=== PATIENT | male | born 1955 | race African-American/Black ===

== ENCOUNTER 2018-11-06 08:07 | Day surgery (SDC) | payer OTHER ==
[2018-11-01 12:22] VITALS: BMI 29.3
[2018-11-06] MEDS ORDERED: PROPOFOL 20 ML ONE (10:00)
[2018-11-06] MEDS ORDERED: LIDOCAINE HCL/PF 2% SDV 5ML VIAL ONE (10:00)
[2018-11-06 11:55] VITALS: PULSE 68
[2018-11-06 12:31] VITALS: BP 118/70; TEMP 97.9
--- NOTE | 2018-11-08 16:31 | PATH ---
Surgical Pathology Report Patient Name: JENNIFER SMITH [facility]. Rec. #: [id number] /Age/Gender: 1955 (Age: 63) / M Account: [id number] Location: [facility] Taken: 11/06/2018 Received: 11/06/2018 Reported: 11/08/2018 Physicians: Tigre Cortez M.D. Specimen(s) Received A: POLYP TRANSVERSE COLON B: CECUM C: RIGHT COLON D: SIGMOID E: RECTOSIGMOID Clinical History History of polyps Postoperative diagnosis: Diverticulosis, polyp Final Diagnosis A. TRANSVERSE COLON, POLYP, BIOPSY: TUBULAR ADENOMA. B. CECAL POLYP, BIOPSY: CONSISTENT WITH TUBULAR ADENOMA WITH MARKED DEGENERATIVE CHANGE. SEE COMMENT. C. COLON, RIGHT, POLYP, BIOPSY: TUBULAR ADENOMA. D. SIGMOID COLON, POLYP, BIOPSY: TUBULAR ADENOMA. E. RECTOSIGMOID COLON, POLYP, BIOPSY: TUBULAR ADENOMA. Comment: Part B, Specimen shows marked degenerative changes which precludes a more definitive diagnosis. Suggest clinical/endoscopic correlation. Electronically Signed Unique Simmons M.D. Gross Description A. Received in formalin, labeled "transverse colon polyp" are 2 gomez, irregular portions of soft tissue averaging 0.4 cm. in greatest dimension. The specimens are submitted in toto in one cassette. B. Received in formalin labeled "cecal polyp," is a 1.4 x 1.3 a 0.3 cm aggregate of gomez soft tissue fragments. The formalin is filtered and the specimen is entirely submitted in one cassette. C. Received in formalin, labeled "right colon polyp" are 2 gomez, polypoid portions of soft tissue measuring 0.6 and 0.9 cm. in greatest dimension. The specimens are submitted in toto in one cassette. D. Received in formalin, labeled "sigmoid polyp" is a gomez, irregular portion of soft tissue measuring 0.4 cm. in greatest dimension. The specimen is submitted in toto in one cassette. E. Received in formalin, labeled "rectosigmoid polyp" is a gomez, irregular portion of soft tissue measuring 0.3 cm. in greatest dimension. The specimen is submitted in toto in one cassette. DL11/07/2018 saudi11/07/2018
== END 2018-11-06 11:55 | disposition home or self-care (01) ==
LOC: FASU-ENDO 08:07
PROVIDERS: ATTEND Internal Medicine Gastroenterology
PROC: 0DBL8ZX Excision of Transverse Colon, Via Natural or Artificial Opening Endoscopic, Diagnostic (ICD-10-PCS; 2018-11-06)
PROC: 0DBN8ZX Excision of Sigmoid Colon, Via Natural or Artificial Opening Endoscopic, Diagnostic (ICD-10-PCS; 2018-11-06)
PROC: 0DBH8ZX Excision of Cecum, Via Natural or Artificial Opening Endoscopic, Diagnostic (ICD-10-PCS; 2018-11-06)
PROC: 0DBK8ZX Excision of Ascending Colon, Via Natural or Artificial Opening Endoscopic, Diagnostic (ICD-10-PCS; principal; 2018-11-06 10:15)
DX: Z86.010 Personal history of colon polyps (principal); D12.0 Benign neoplasm of cecum; D12.2 Benign neoplasm of ascending colon; D12.3 Benign neoplasm of transverse colon; D12.5 Benign neoplasm of sigmoid colon; D12.7 Benign neoplasm of rectosigmoid junction; K57.30 Diverticulosis of large intestine without perforation or abscess without bleeding
CPT/HCPCS: 88305-TC

== ENCOUNTER 2019-08-13 08:14 | Day surgery (SDC) | payer OTHER ==
[2019-08-09 13:37] VITALS: BMI 28.6
[2019-08-13] MEDS ORDERED: PROPOFOL 20 ML ONE ×3 (09:28)
[2019-08-13 10:57] VITALS: BP 140/77; PULSE 67; TEMP 97.8
--- NOTE | 2019-08-16 14:57 | PATH ---
Surgical Pathology Report Patient Name: JENNIFER SMITH [facility]. Rec. #: [id number] /Age/Gender: 1955 (Age: 64) / M Account: [id number] Location: [facility] Taken: 08/13/2019 Received: 08/13/2019 Reported: 08/16/2019 Physicians: Tigre Cortez M.D. Specimen(s) Received A: POLYP CECUM B: POLYP PROXIMAL RIGHT COLON C: POLYPECTOMY MID RIGHT COLON Clinical History History of polyps Postoperative diagnosis: Melanosis coli, colon polyps, poor prep Final Diagnosis A. CECUM, POLYP, POLYPECTOMY: TUBULAR ADENOMA. B. PROXIMAL COLON, RIGHT, POLYP, POLYPECTOMY: ORGANIC MATERIAL/DEBRIS. NO SOFT TISSUE IDENTIFIED. SEE COMMENT. C. MID COLON, RIGHT, POLYPECTOMY: TUBULAR ADENOMA. Comment: Part B, material insufficient for definitive diagnosis. Suggest clinical and endoscopic correlation. Electronically Signed Unique Simmons M.D. Gross Description A. Received in formalin, labeled "biopsy polyp cecum" is a gomez, irregular portion of soft tissue measuring 0.3 cm. in greatest dimension. The specimen is submitted in toto in one cassette. B. Received in formalin labeled "biopsy polyp proximal right colon," is a 0.3 x 0.2 x 0.1 cm aggregate of organic debris. No definitive soft tissue is identified. The formalin is filtered and the specimen is entirely submitted in one cassette. Specimen may not survive tissue processing. C. Received in formalin, labeled "hot snare polypectomy mid right colon" are 4 gomez, irregular to polypoid portions of soft tissue ranging from 0.2-1.2 cm. in greatest dimension. The specimens are submitted in toto in one cassette. 08/14/2019 saudi08/14/2019
== END 2019-08-13 10:57 | disposition home or self-care (01) ==
LOC: FASU-ENDO 08:14
PROVIDERS: ATTEND Internal Medicine Gastroenterology
PROC: 0DBH8ZX Excision of Cecum, Via Natural or Artificial Opening Endoscopic, Diagnostic (ICD-10-PCS; 2019-08-13)
PROC: 0DBK8ZX Excision of Ascending Colon, Via Natural or Artificial Opening Endoscopic, Diagnostic (ICD-10-PCS; principal; 2019-08-13 09:32)
DX: Z86.010 Personal history of colon polyps (principal); D12.0 Benign neoplasm of cecum; D12.2 Benign neoplasm of ascending colon; K63.89 Other specified diseases of intestine

== ENCOUNTER 2020-10-23 08:14 | Day surgery (SDC) | payer OTHER ==
[2020-10-21 13:14] VITALS: BMI 29.5
[2020-10-23] MEDS ORDERED: LIDOCAINE HCL/PF 2% SDV 5ML VIAL ONE (08:39)
[2020-10-23] MEDS ORDERED: PROPOFOL 20 ML ONE ×2 (08:39)
[2020-10-23 09:33] VITALS: TEMP 98.2
[2020-10-23 09:38] VITALS: BP 102/81; PULSE 74
== END 2020-10-23 10:40 | disposition home or self-care (01) ==
LOC: FASU-ENDO 08:14
PROVIDERS: ATTEND Internal Medicine Gastroenterology
PROC: 0DBK8ZX Excision of Ascending Colon, Via Natural or Artificial Opening Endoscopic, Diagnostic (ICD-10-PCS; 2020-10-23)
PROC: 0DBL8ZX Excision of Transverse Colon, Via Natural or Artificial Opening Endoscopic, Diagnostic (ICD-10-PCS; 2020-10-23)
PROC: 0DBH8ZX Excision of Cecum, Via Natural or Artificial Opening Endoscopic, Diagnostic (ICD-10-PCS; 2020-10-23)
PROC: 0DBL8ZX Excision of Transverse Colon, Via Natural or Artificial Opening Endoscopic, Diagnostic (ICD-10-PCS; principal; 2020-10-23 08:55)
DX: Z09 Encounter for follow-up examination after completed treatment for conditions other than malignant neoplasm (principal); Z86.010 Personal history of colon polyps; D12.0 Benign neoplasm of cecum; D12.2 Benign neoplasm of ascending colon; D12.3 Benign neoplasm of transverse colon; K63.89 Other specified diseases of intestine
CPT/HCPCS: 88305-TC

== ENCOUNTER 2024-04-09 08:59 | Day surgery (SDC) | payer OTHER ==
[2024-04-05 11:11] VITALS: BMI 30.1
[2024-04-09] MEDS ORDERED: PROPOFOL 80 ML ONE (10:19)
[2024-04-09 11:09] VITALS: RESP 17; TEMP 97.1
[2024-04-09 11:27] VITALS: BP 134/62; PULSE 70
== END 2024-04-09 11:28 | disposition home or self-care (01) ==
LOC: FASU-ENDO 08:59
PROVIDERS: ATTEND Internal Medicine Gastroenterology
PROC: 0DBL8ZX Excision of Transverse Colon, Via Natural or Artificial Opening Endoscopic, Diagnostic (ICD-10-PCS; 2024-04-09)
PROC: 0DBH8ZX Excision of Cecum, Via Natural or Artificial Opening Endoscopic, Diagnostic (ICD-10-PCS; 2024-04-09)
PROC: 3E0H8KZ Introduction of Other Diagnostic Substance into Lower GI, Via Natural or Artificial Opening Endoscopic (ICD-10-PCS; 2024-04-09)
PROC: 0DBK8ZX Excision of Ascending Colon, Via Natural or Artificial Opening Endoscopic, Diagnostic (ICD-10-PCS; principal; 2024-04-09 10:05)
DX: Z12.11 Encounter for screening for malignant neoplasm of colon (principal); D12.0 Benign neoplasm of cecum; D12.2 Benign neoplasm of ascending colon; D12.3 Benign neoplasm of transverse colon; K63.89 Other specified diseases of intestine; Z86.010 Personal history of colon polyps
CPT/HCPCS: 88305-TC